=== PATIENT | female | born 1975 | race African-American/Black ===

== ENCOUNTER 2016-05-12 12:37 | Emergency (ER) | payer MEDICAID ==
[~2016-05-12] VITALS: Ht 170.2 cm; Wt 99.8 kg
[~2016-05-12 12:37] MED LIST: AMITRIPTYLINE25 MG ORAL; CYCLOBENZAPRINE10 MG ORAL; HYDROCODON-ACE1 EA15 ORAL; IBUPROFEN600 MG ORAL; IBUPROFEN800 M1 PO; NAPROSYN500 M1 ORAL; NKM; POLYTRIM OP SOL10 ML OPHTHALM; VIBRAMYCIN100 MG ORAL
[2016-05-12 12:55] VITALS: BP 98/66
--- NOTE | 2016-05-12 13:03 | Emergency Room Report ---
History of Present Illness General Chief Complaint: Female Urogenital Problems Source: Patient Present Illness HPI 40-year-old female presents emergency department complaining of dysuria and mild hematuria times one day. Patient denies nausea vomiting fevers chills abdominal pain or abdominal tenderness. Patient denies vaginal discharge or . Patient reports history of UTI in the past with similar symptoms. Patient denies CVA tenderness. Denies CP, Palpitations, LOC, AMS, dizziness, Changes in Vision, Sensation, paresthesias, or a sudden severe headache. Allergies: Coded Allergies: MORPHINE (Verified Allergy, Mild, 11/15/13) CONSTIPATION Patient History Past Medical History: see triage record Past Surgical History: none Pertinent Family History: none Last Menstrual Period: 2011 Now: No Immunizations: UTD Reviewed Nursing Documentation: PMH: Agreed, PSxH: Agreed Nursing Documentation-PMH Past Medical History: No History, Except For Hx Cardiac Problems: No - Sickle cell Review of Systems All Other Systems: negative except mentioned in HPI Physical Exam Vital Signs Date Time Temp Pulse Resp B/P Pulse Ox O2 Delivery O2 Flow Rate FiO2 05/12/16 12:46 98.1 78 16 98/66 98 Room Air Sp02 EP Interpretation: reviewed, normal General Appearance: no apparent distress, alert, GCS 15, non-toxic Head: normocephalic, atraumatic Eyes: bilateral eye PERRL, bilateral eye normal inspection ENT: hearing grossly normal, normal pharynx, no angioedema, normal voice Neck: full range of motion, supple/symm/no masses Respiratory: chest non-tender, lungs clear, normal breath sounds, speaking full sentences Cardiovascular #1: regular rate, rhythm, no edema Gastrointestinal: normal bowel sounds, non tender, soft, no guarding, no rebound Rectal: deferred Genitourinary: normal inspection, no CVA tenderness Musculoskeletal: back normal, gait/station normal, normal range of motion, non- tender Neurologic: alert, oriented x3, responsive, motor strength/tone normal, sensory intact, speech normal Psychiatric: judgement/insight normal, memory normal, mood/affect normal, no suicidal/homicidal ideation Reflexes: 4+ bicep (R), 4+ bicep (L), 4+ tricep (R), 4+ tricep (L), 4+ knee (R) , 4+ knee (L) Skin: normal color, no rash, warm/dry, well hydrated Lymphatic: no adenopathy Medical Decision Making PA Attestation Dr. Perea is my supervising Physician whom patient management has been discussed with. Diagnostic Impression: Primary Impression: UTI (urinary tract infection) Qualified Codes: N30.01 - Acute cystitis with hematuria Additional Impression: Dysuria ER Course Pt. presents to the ED c/o dysuria and mild hematuria x 1 Day, denies abdominal pain or tenderness. denies fevers. . Ddx considered but are not limited to UTi , Pyelo, STI, Stone, Cystitis Vital signs: are WNL, pt. is afebrile H&PE are most consistent with UTI ORDERS: - UA labs are attached : 30-40 WBC's , leukocyte esterase present and few bacteria, suspicious for UTI. ED INTERVENTIONS: -Pyridium PO . DISCHARGE: At this time pt. is stable for d/c to home. Will provide printed patient care instructions, and any necessary prescriptions. Care plan and follow up instructions have been discussed with the patient prior to discharge. Labs Test 05/12/16 12:50 Urine Color Pale yellow Urine Appearance Slightly cloudy Urine pH 6 (4.5-8.0) Urine Specific [place] 1.015 (1.005-1.035) Urine Protein 3+ (NEGATIVE) Urine Glucose (UA) Negative (NEGATIVE) Urine Ketones Negative (NEGATIVE) Urine Occult Blood 5+ (NEGATIVE) Urine Nitrite Negative (NEGATIVE) Urine Bilirubin Negative (NEGATIVE) Urine Urobilinogen Normal MG/DL (0.0-1.0) Urine Leukocyte Esterase 3+ (NEGATIVE) Urine RBC 10-15 /HPF (0 - 2) Urine WBC 30-40 /HPF (0 - 2) Urine Squamous Epithelial Cells Few /LPF (NONE/OCC) Urine Bacteria Few /HPF (NONE) Last Vital Signs Date Time Temp Pulse Resp B/P Pulse Ox O2 Delivery O2 Flow Rate FiO2 05/12/16 12:55 16 98/66 98 Room Air 05/12/16 12:46 98.1 78 Disposition: HOME, SELF-CARE Condition: Stable Scripts Phenazopyridine Hcl* (PYRIDIUM*) 200 Mg Tablet 200 MG ORAL THREE TIMES A DAY for 3 Days, #10 TAB 0 Refills Prov: Yareli Cullen P.Elzbieta 05/12/16 Nitrofurantoin Monohyd/M-Cryst* (MACROBID 100 MG*) 100 Mg Capsule 100 MG ORAL EVERY 12 HOURS for 5 Days, #10 CAP Prov: Yareli Cullen 05/12/16 Patient Instructions: Urinary Tract Infection Additional Instructions: Take medications as directed. Follow up with PCP in 3-5 days Return sooner to ED if new symptoms occur, or current symptoms become worse. Pyridium will cause your urine to change color (Red/[place]), this is a normal side effect of the medication. - Please note that this Emergency Department Report was dictated using [employer] video games technology software, occasionally this can lead to erroneous entry secondary to interpretation by the dictation equipment. Yareli Cullen May 12, 2016 13:03
[2016-05-12] MEDS ORDERED: Phenazopyridine 200mg tab ORAL ONE (13:15)
[2016-05-12 13:19] LABS: APPEARANCE,URINE SLIGHTLY CLOUDY; KETONES,URINE NEGATIVE (NEGATIVE); LEUKOCYTE ESTERASE ,URINE 3+ (NEGATIVE); NITRITE,URINE NEGATIVE (NEGATIVE); PH,URINE 6 (4.5-8.0); PROTEIN,URINE 3+ (NEGATIVE); UROBILINOGEN,URINE NORMAL MG/DL (0.0-1.0)
[2016-05-12 13:26] LABS: BACTERIA,URINE FEW /HPF; SQUAMOUS EPITHELIAL CELL,UR FEW /LPF (NONE/OCC); WBC,URINE 30-40 /HPF (0 - 2)
[2016-05-12] MEDS ORDERED: PHENAZOPYRIDIN200 MG ORAL (13:31)
[2016-05-12] MEDS ORDERED: NITROFURANTOIN100 M2 ORAL (13:31)
[2016-05-12 13:34] VITALS: BP 98/66
== END 2016-05-12 13:35 | disposition home or self-care (01) ==
LOC: EMR 13:30
DX: N30.01 Acute cystitis with hematuria (principal); R31.9 Hematuria, unspecified; Z88.6 Allergy status to analgesic agent; D57.1 Sickle-cell disease without crisis
CPT/HCPCS: 81003; 87086; 87181; 99284

== ENCOUNTER 2016-10-04 21:33 | Emergency (ER) | payer MEDICAID ==
[~2016-10-04] VITALS: Ht 170.2 cm; Wt 114.3 kg
[~2016-10-04 21:33] MED LIST changes: +NITROFURANTOIN100 M2 ORAL; +PHENAZOPYRIDIN200 MG ORAL
[2016-10-04 21:45] VITALS: BP 136/79
[2016-10-04] MEDS ORDERED: MEDROL4 M1 PO (23:06)
[2016-10-04] MEDS ORDERED: HYDROCODON-ACE1 EA15 ORAL (23:06)
[2016-10-04] MEDS ORDERED: IBUPROFEN600 MG ORAL (23:06)
--- NOTE | 2016-10-04 23:06 | Emergency Room Report ---
History of Present Illness General Chief Complaint: Lower Back Pain or Injury Source: Patient Present Illness [facility] This is a 41-year-old female with no significant past medical history. She presents with chief complaint of lower back pain. She fell about a month ago. Since then it has been hurting. Now pain going down her thigh area. No incontinence of bowel or urine. Pain is 9/10. Worse with walking. Worse with sitting. Better in certain position. No fever or chills. No in other complaint. Allergies: Coded Allergies: MORPHINE (Verified Allergy, Mild, 11/15/13) CONSTIPATION Patient History Past Medical History: see triage record, old chart reviewed Past Surgical History: other Pertinent Family History: none Social History: Denies: smoking Now: No Immunizations: other Reviewed Nursing Documentation: PMH: Agreed, PSxH: Agreed Nursing Documentation-PMH Past Medical History: No History, Except For Hx Cardiac Problems: No - Sickle cell Review of Systems Eye: Denies: blurred vision, eye pain ENT: Denies: ear pain, nose congestion, throat swelling Respiratory: Denies: cough, shortness of breath Cardiovascular: Denies: chest pain, palpitations Gastrointestinal: Denies: abdominal pain, diarrhea, nausea, vomiting Musculoskeletal: Reports: back pain, Denies: joint pain Skin: Denies: rash Neurological: Denies: headache, numbness Endocrine: Denies: increased thirst, increased urine Hematologic/Lymphatic: Denies: easy bruising All Other Systems: negative except mentioned in HPI Physical Exam Vital Signs Date Time Temp Pulse Resp B/P Pulse Ox O2 Delivery O2 Flow Rate FiO2 10/04/16 21:38 97.5 76 16 136/79 98 Room Air vitals normal Sp02 EP Interpretation: reviewed, normal General Appearance: well appearing, no apparent distress, alert, obese Head: normocephalic, atraumatic Eyes: bilateral eye EOMI, bilateral eye PERRL ENT: hearing grossly normal, normal pharynx Neck: full range of motion, supple, no meningismus Respiratory: chest non-tender, lungs clear, normal breath sounds Cardiovascular #1: regular rate, rhythm, no murmur Gastrointestinal: normal bowel sounds, non tender, no mass, no organomegaly, no bruit, non-distended Musculoskeletal: back normal, gait/station normal, normal range of motion Psychiatric: mood/affect normal Skin: warm/dry Medical Decision Making Diagnostic Impression: Primary Impression: Low back pain Qualified Codes: M54.42 - Lumbago with sciatica, left side Additional Impression: Foraminal stenosis of lumbar region ER Course Patient presents with lower back pain. She does have severe foraminal narrowing. No evidence of cauda equina syndrome, spinal after abscess or neoplastic process. We'll discharge home. CT/MRI/US Diagnostic Results CT/MRI/US Diagnostic Results : Imaging Test Ordered: CT lumbar spine Impression Read by radiologist. Severe left and moderate to severe right neural foraminal narrowing. Last Vital Signs Date Time Temp Pulse Resp B/P Pulse Ox O2 Delivery O2 Flow Rate FiO2 10/04/16 21:38 97.5 76 16 136/79 98 Room Air Status: improved Disposition: HOME, SELF-CARE Condition: Stable Scripts Methylprednisolone (MEDROL) 4 Mg Tab.ds.pk 4 MG PO DAILY, #1 PACK Prov: PORFIRIO PHIPPS M.D. 10/04/16 Ibuprofen* (MOTRIN*) 600 Mg Tablet 600 MG ORAL Q8H Y for For Pain, #30 TAB 0 Refills Prov: PORFIRIO PHIPPS M.D. 10/04/16 Hydrocodone/Acetaminophen 5-325* (HYDROCODONE/ACETAMINOPHEN 5-325*) 1 Each Tablet 1 TAB ORAL Q6H Y for For Pain, #30 TAB 0 Refills Prov: PORFIRIO PHIPPS M.D. 10/04/16 Patient Instructions: Back Pain, Adult Additional Instructions: Followup with your DrAbner in 7 days. Return if symptom worsen. PORFIRIO PHIPPS M.D. Oct 04, 2016 23:06
[2016-10-04 23:15] VITALS: BP 93/57
[2016-10-04 23:18] VITALS: BP 93/57
--- NOTE | 2016-10-05 10:13 | Diagnostic Imaging Report ---
Indications: Pain, trauma, left hip. Pain radiating to lower back Technique: Spiral acquisitions obtained through the lumbar spine. Multiplanar reconstructions were generated. No IV contrast utilized. Total dose length product 711 mGycm. CTDIvol(s) 24 mGy. Dose reduction achieved using automated exposure control Comparison: None Findings: Bony alignment is normal. Vertebral body heights are preserved. Disc spaces are preserved. There is transitional anatomy, with a transitional segment which will be referred to as S1 as there are 5 [id number] lumbar type vertebral bodies above it. 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 No acute fractures. No dislocations. No significant disc bulge or protrusion or spinal stenosis. At L5-S1, there is mild right, moderate to severe neural foraminal stenosis, due to facet degeneration. There is minimal bilateral neural foraminal at L4-5, due to facet degeneration Impression: No acute bony trauma Degenerative changes, as delineated on a level basis above The CT scanner at [facility] is accredited by the [employer] and the scans are performed using protocols designed to limit radiation exposure to as low as reasonably achievable to attain images of sufficient resolution adequate for diagnostic evaluation.
== END 2016-10-04 23:30 | disposition home or self-care (01) ==
LOC: EMR 23:27
DX: M54.42 Lumbago with sciatica, left side (principal); M48.06 Spinal stenosis, lumbar region; Z88.6 Allergy status to analgesic agent; E66.9 Obesity, unspecified
CPT/HCPCS: 72131; 99284

== ENCOUNTER 2016-10-09 23:42 | Emergency (ER) | payer MEDICAID ==
[~2016-10-09] VITALS: Ht 170.2 cm; Wt 113.4 kg
[~2016-10-09 23:42] MED LIST changes: +MEDROL4 M1 PO
[2016-10-10] MEDS ORDERED: NITROFURANTOIN100 M2 ORAL (00:15)
[2016-10-10] MEDS ORDERED: Norco 10mg/325mg tab ORAL ONE (00:15)
[2016-10-10 00:19] VITALS: BP 135/75
--- NOTE | 2016-10-10 00:27 | Emergency Room Report ---
History of Present Illness General Chief Complaint: Pain Source: Patient Present Illness HPI [id number] Walk-in with 2 weeks dysuria States "urine wasnt checked" on previous visit a couple days ago Also states Rx for [place] wasnt signed by Dr Amaya - was given repeat Rx signed by prior to my evaluation but patient still wanted to be seen by MD for dysuria Denies abd pain, nausea/vomiting, flank pain, fever/chills Denies chance of being Allergies: Coded Allergies: MORPHINE (Verified Allergy, Mild, 11/15/13) CONSTIPATION Patient History Past Medical History: none Past Surgical History: none Pertinent Family History: none Social History: Denies: alcohol use, drug use, smoking Last Menstrual Period: unk Now: No Immunizations: UTD Reviewed Nursing Documentation: PMH: Agreed, PSxH: Agreed Nursing Documentation-PMH Hx Cardiac Problems: No - Sickle cell Review of Systems All Other Systems: negative except mentioned in HPI Physical Exam Vital Signs Date Time Temp Pulse Resp B/P Pulse Ox O2 Delivery O2 Flow Rate FiO2 10/10/16 00:16 98.6 78 16 135/75 98 Room Air Sp02 EP Interpretation: reviewed, normal General Appearance: normal inspection, well appearing, no apparent distress, alert Head: atraumatic ENT: normal ENT inspection, hearing grossly normal, normal voice Neck: normal inspection, full range of motion, supple, no bony tend Respiratory: normal inspection, lungs clear, normal breath sounds, no respiratory distress, no retraction, no wheezing Cardiovascular #1: regular rate, rhythm, no edema Gastrointestinal: normal inspection, normal bowel sounds, non tender, soft, no guarding, no hernia Genitourinary: no CVA tenderness Musculoskeletal: normal inspection, back normal, normal range of motion, Cory' s Sign negative Neurologic: normal inspection, alert, oriented x3, responsive, 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, motor strength/tone normal, speech normal Psychiatric: normal inspection, judgement/insight normal, mood/affect normal Skin: normal inspection, normal color, no rash Medical Decision Making Diagnostic Impression: Primary Impression: Dysuria ER Course Empiric Abx for UTI based on April 2016 sensitivity Macrobid No systemic signs/symptoms of sepsis, pyelo DC home Last Vital Signs Date Time Temp Pulse Resp B/P Pulse Ox O2 Delivery O2 Flow Rate FiO2 10/10/16 00:19 98.6 78 16 135/75 98 Room Air Status: improved Disposition: HOME, SELF-CARE Condition: Improved Scripts Nitrofurantoin Monohyd/M-Cryst* (MACROBID 100 MG*) 100 Mg Capsule 100 MG ORAL EVERY 12 HOURS for 7 Days, #14 CAP Prov: RANDA BRITT M.D. 10/10/16 Patient Instructions: Dysuria RANDA BRITT M.D. Oct 10, 2016 00:27
[2016-10-10 00:35] VITALS: BP 135/75
[2016-10-10 01:10] LABS: APPEARANCE,URINE CLEAR; KETONES,URINE NEGATIVE (NEGATIVE); LEUKOCYTE ESTERASE ,URINE NEGATIVE (NEGATIVE); NITRITE,URINE NEGATIVE (NEGATIVE); PH,URINE 6 (4.5-8.0); PROTEIN,URINE NEGATIVE (NEGATIVE); UROBILINOGEN,URINE 1 MG/DL (0.0-1.0)
== END 2016-10-10 00:35 | disposition home or self-care (01) ==
LOC: EMR 23:59
DX: R30.0 Dysuria (principal); Z87.440 Personal history of urinary (tract) infections; Z88.6 Allergy status to analgesic agent
CPT/HCPCS: 81003; 81025; 99283

== ENCOUNTER 2017-01-04 22:15 | Emergency (ER) | payer MEDICAID ==
[~2017-01-04] VITALS: Ht 170.2 cm; Wt 117.0 kg
[2017-01-04] MEDS ORDERED: Ketorolac 60mg Inj IM ONE (22:45)
[2017-01-04] MEDS ORDERED: IBUPROFEN600 MG ORAL (23:05)
[2017-01-04] MEDS ORDERED: ROBAXIN-750750 MG PO (23:05)
[2017-01-04 23:17] VITALS: BP 126/72
[2017-01-04 23:18] VITALS: BP 128/70
--- NOTE | 2017-01-05 03:30 | Emergency Room Report ---
History of Present Illness General Chief Complaint: Multiple Trauma/Fall Source: Patient Present Illness HPI Patient 41-year-old female who presented after increased left-sided shoulder pain as well as left hip pain after a fall. Patient reports falling down some stairs. She reports having increased pain to the shoulder and hip. Patient had been ambulatory after the fall. She denies loss of consciousness. She reports having her left and and front of her. She denies vomiting or abdominal pain. Allergies: Coded Allergies: MORPHINE (Verified Allergy, Mild, 11/15/13) CONSTIPATION Patient History Past Medical History: see triage record Last Menstrual Period: mar 2011 Now: No : 4 Reviewed Nursing Documentation: PMH: Agreed, PSxH: Agreed Nursing Documentation-PMH Hx Cardiac Problems: No - Sickle cell Review of Systems All Other Systems: negative except mentioned in HPI Physical Exam Vital Signs Date Time Temp Pulse Resp B/P (MAP) Pulse Ox O2 Delivery O2 Flow Rate FiO2 01/04/17 22:17 97.2 66 18 123/73 98 Room Air General Appearance: well appearing, no apparent distress, alert, GCS 15, non- toxic, obese Head: normocephalic, atraumatic ENT: hearing grossly normal, normal voice Neck: full range of motion, supple Respiratory: no respiratory distress, speaking full sentences Cardiovascular #1: normal inspection, normal peripheral pulses, regular rate, rhythm Musculoskeletal: normal inspection, normal range of motion, no calf tenderness Neurologic: normal inspection, alert, oriented x3, responsive, 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 Differential diagnosis included was not limited to neck fracture, CVA, close head injury, syncopal episode, basilar ischemia. Patient's benign exam and does not appear to require any laboratory testing at this time. X-ray imaging of the left shoulder as well as the left hip were ordered. X-ray of the shoulder three-view interpreted by me showed a degenerative changes without fracture. X-ray of the left hip 2 views interpreted by me show bony alignment without fracture. The patient is advised to follow up with primary care doctor in 1-2 days. Patient is advised to return if any worsening condition or if any changes in status that are concerning. Last Vital Signs Date Time Temp Pulse Resp B/P (MAP) Pulse Ox O2 Delivery O2 Flow Rate FiO2 01/04/17 23:18 97.4 78 19 128/70 100 Room Air Status: improved Disposition: HOME, SELF-CARE Condition: Stable Scripts Ibuprofen* (MOTRIN*) 600 Mg Tablet 600 MG ORAL Q8H Y for For Pain, #30 TAB 0 Refills Prov: Shamar Thomas 01/04/17 Methocarbamol* (ROBAXIN-750*) 750 Mg Tablet 750 MG PO TID for For Pain, #21 TAB 0 Refills Prov: Shamar Thomas 01/04/17 [facility] (PCP[facility] Patient Instructions: Shoulder Pain, Hip Pain Shamar Thomas Jan 05, 2017 03:30
--- NOTE | 2017-01-05 11:15 | Diagnostic Imaging Report ---
Indication: PAIN Technique: 3 views of the left shoulder Comparison: None Findings: No acute fractures or dislocations. Joint spaces are preserved. Impression: Negative
--- NOTE | 2017-01-05 11:16 | Diagnostic Imaging Report ---
Indication: PAIN Technique: 2 views of the left hip Comparison: None Findings: There are mild degenerative changes of the sacroiliac joints and pubic symphysis. No acute fractures. No dislocations. Hip joint space is preserved Impression: No acute bony trauma
== END 2017-01-04 23:27 | disposition home or self-care (01) ==
LOC: EMR 22:32
DX: T14.8XXA Other injury of unspecified body region, initial encounter (principal); M25.552 Pain in left hip; M25.512 Pain in left shoulder; Z88.6 Allergy status to analgesic agent; M79.1 Myalgia; W10.9XXA Fall (on) (from) unspecified stairs and steps, initial encounter; Y92.9 Unspecified place or not applicable
CPT/HCPCS: 73502; 96372; 99284

== ENCOUNTER 2017-02-25 13:45 | Emergency (ER) | payer MEDICAID ==
[~2017-02-25] VITALS: Ht 170.2 cm; Wt 113.4 kg
[~2017-02-25 13:45] MED LIST changes: +ROBAXIN-750750 MG PO
[2017-02-25 14:50] VITALS: BP 108/75
[2017-02-25] MEDS ORDERED: Methocarbamol 750mg tab ORAL ONE (15:00)
[2017-02-25] MEDS ORDERED: Ketorolac 60mg Inj IM ONE (15:00)
[2017-02-25] MEDS ORDERED: IBUPROFEN600 MG ORAL (16:13)
[2017-02-25] MEDS ORDERED: ROBAXIN-750750 MG PO (16:13)
[2017-02-25 16:28] VITALS: BP 116/74
--- NOTE | 2017-02-25 17:02 | Diagnostic Imaging Report ---
Indication: Pain, status post fall Technique: 3 views of the left shoulder Comparison: none Findings: No acute fractures. No dislocations. Joint spaces are preserved Impression: Negative
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
== END 2017-02-25 16:40 | disposition home or self-care (01) ==
LOC: EMR 16:38
DX: S16.1XXA Strain of muscle, fascia and tendon at neck level, initial encounter (principal); S46.812A Strain of other muscles, fascia and tendons at shoulder and upper arm level, left arm, initial encounter; V43.52XA Car driver injured in collision with other type car in traffic accident, initial encounter; Y92.410 Unspecified street and highway as the place of occurrence of the external cause; Z88.6 Allergy status to analgesic agent
CPT/HCPCS: 96372; 99284

== ENCOUNTER 2017-05-21 20:54 | Emergency (ER) | payer MEDICAID ==
[~2017-05-21] VITALS: Ht 170.2 cm; Wt 108.0 kg
[2017-05-21 21:10] VITALS: BP 114/73
[2017-05-21] MEDS ORDERED: IBUPROFEN600 MG ORAL (21:24)
--- NOTE | 2017-05-21 21:24 | Emergency Room Report ---
History of Present Illness General Chief Complaint: Flu Like Symptoms Source: Patient Present Illness HPI Is a 41-year-old female with no past medical history. She presents with chief complaint of cough and congestion and body pain for last 2 days. Cough is nonproductive in nature. Nose is runny. Body pain is 7 out of 10. Subjective fever. Denies any other complaint. Allergies: Coded Allergies: MORPHINE (Verified Allergy, Mild, 11/15/13) CONSTIPATION Patient History Past Medical History: see triage record, old chart reviewed Past Surgical History: none Pertinent Family History: none Social History: Denies: smoking Last Menstrual Period: n/a Now: No - hysterectomy 2011 Immunizations: other Reviewed Nursing Documentation: PMH: Agreed; PSxH: Agreed Nursing Documentation-PMH Past Medical History: No History, Except For Review of Systems Eye: Denies: eye pain, blurred vision ENT: Reports: nose congestion, nasal discharge; Denies: ear pain, throat swelling Respiratory: Reports: cough; Denies: shortness of breath Cardiovascular: Denies: chest pain, palpitations Gastrointestinal: Denies: abdominal pain, diarrhea, nausea, vomiting Musculoskeletal: Denies: back pain, joint pain Skin: Denies: rash Neurological: Denies: headache, numbness Endocrine: Denies: increased thirst, increased urine Hematologic/Lymphatic: Denies: easy bruising All Other Systems: negative except mentioned in HPI Physical Exam Vital Signs Date Time Temp Pulse Resp B/P (MAP) Pulse Ox O2 Delivery O2 Flow Rate FiO2 05/21/17 20:58 98.7 87 16 114/73 95 Room Air 98.8 vitals normal Sp02 EP Interpretation: reviewed, normal General Appearance: well appearing, no apparent distress, alert Head: normocephalic, atraumatic Eyes: bilateral eye PERRL, bilateral eye EOMI ENT: hearing grossly normal, normal pharynx Neck: full range of motion, supple, no meningismus Respiratory: chest non-tender, lungs clear, normal breath sounds Cardiovascular #1: regular rate, rhythm, no murmur Gastrointestinal: normal bowel sounds, non tender, no mass, no organomegaly, no bruit, non-distended Musculoskeletal: back normal, gait/station normal, normal range of motion Psychiatric: mood/affect normal Skin: warm/dry Medical Decision Making Diagnostic Impression: Primary Impression: Upper respiratory infection Qualified Codes: J06.9 - Acute upper respiratory infection, unspecified ER Course Patient with a viral upper respiratory or infection. No evidence of sepsis, pneumonia, meningitis or other serious bacterial infection. We'll discharge home. Last Vital Signs Date Time Temp Pulse Resp B/P (MAP) Pulse Ox O2 Delivery O2 Flow Rate FiO2 05/21/17 21:10 87 16 Room Air 05/21/17 21:10 98.8 114/73 95 98.8 Status: unchanged Disposition: HOME, SELF-CARE Condition: Stable Scripts Ibuprofen* (MOTRIN*) 600 Mg Tablet 600 MG ORAL THREE TIMES A DAY, #30 TAB 0 Refills Prov: PORFIRIO PHIPPS M.D. 05/21/17 Additional Instructions: Follow-up with your Dr. in 7 days. Return if worse. PORFIRIO PHIPPS M.D. May 21, 2017 21:24
[2017-05-21 21:33] VITALS: BP 114/70
== END 2017-05-21 21:33 | disposition home or self-care (01) ==
LOC: EMR 21:19
DX: J06.9 Acute upper respiratory infection, unspecified (principal); Z88.5 Allergy status to narcotic agent
CPT/HCPCS: 99283

== ENCOUNTER 2017-05-24 00:01 | Emergency (ER) | payer MEDICAID ==
[~2017-05-24] VITALS: Ht 170.2 cm; Wt 112.9 kg
[2017-05-24 00:20] VITALS: BP 128/75
--- NOTE | 2017-05-24 00:31 | Emergency Room Report ---
History of Present Illness General Chief Complaint: Fever Source: Patient Present Illness HPI This a 41-year-old female who said that she has sickle cell disease. She presents with chief complaint of fever and body pain. Onset today. Also with cough which is nonproductive in nature. Has nausea and vomiting and generalized malaise. Took aspirin prior to arrival. Denies any other complaint. Pain is 10 out of 10. Allergies: Coded Allergies: MORPHINE (Verified Allergy, Mild, 11/15/13) CONSTIPATION Patient History Past Medical History: see triage record, old chart reviewed Past Surgical History: other Pertinent Family History: none Social History: Denies: smoking Last Menstrual Period: 2011 Now: No Immunizations: other Reviewed Nursing Documentation: PMH: Agreed; PSxH: Agreed Review of Systems Constitutional: Reports: chills, sweats, fever, malaise Eye: Denies: eye pain, blurred vision ENT: Denies: ear pain, nose congestion, throat swelling Respiratory: Reports: cough Cardiovascular: Denies: chest pain, palpitations Gastrointestinal: Reports: nausea, vomiting Musculoskeletal: Reports: back pain, joint pain Skin: Denies: rash Neurological: Denies: headache, numbness Endocrine: Denies: increased thirst, increased urine Hematologic/Lymphatic: Denies: easy bruising All Other Systems: negative except mentioned in HPI Physical Exam Vital Signs Date Time Temp Pulse Resp B/P (MAP) Pulse Ox O2 Delivery O2 Flow Rate FiO2 05/24/17 00:07 99.8 93 18 103/61 95 Room Air 99.9 vitals with low-grade fever Sp02 EP Interpretation: reviewed, normal General Appearance: well appearing, no apparent distress, alert Head: normocephalic, atraumatic Eyes: bilateral eye PERRL, bilateral eye EOMI ENT: hearing grossly normal, normal pharynx Neck: full range of motion, supple, no meningismus Respiratory: chest non-tender, lungs clear, normal breath sounds Cardiovascular #1: regular rate, rhythm, no murmur Gastrointestinal: normal bowel sounds, non tender, no mass, no organomegaly, no bruit, non-distended Musculoskeletal: back normal, gait/station normal, normal range of motion Psychiatric: mood/affect normal Skin: warm/dry Medical Decision Making Diagnostic Impression: Primary Impression: UTI (urinary tract infection) Qualified Codes: N30.00 - Acute cystitis without hematuria Additional Impression: Influenza-like illness ER Course Patient with a flulike illness and may have UTI. Even though influenza swab was negative, we'll go ahead and treat because of her sickle cell disease. I question were not this is a trait since her hemoglobin is 14. No evidence of sepsis, pneumonia, ACS to name a few. We'll discharge home. Lab Results Impression labs unremarkable Rhythm Strip Diag. Results EP Interpretation: yes Rate: 63 Rhythm: NSR, no PVC's, no ectopy Chest X-Ray Diagnostic Results Chest X-Ray Diagnostic Results : Chest X-Ray Ordered: Yes # of Views/Limited/Complete: 1 View Indication: Shortness of Breath EP Interpretation: Yes Interpretation: no consolidation, no effusion, no pneumothorax, no acute cardiopulmonary disease Impression: No acute disease Electronically Signed by: Jericho Amaya MD Last Vital Signs Date Time Temp Pulse Resp B/P (MAP) Pulse Ox O2 Delivery O2 Flow Rate FiO2 05/24/17 00:07 99.8 93 18 103/61 95 Room Air 99.9 Status: improved Disposition: HOME, SELF-CARE Condition: Stable Scripts Cephalexin* (KEFLEX*) 500 Mg Capsule 500 MG ORAL TID, #21 CAP 0 Refills Prov: JERICHO AMAYA M.D. 05/24/17 Hydrocodone/Acetaminophen 5-325* (HYDROCODONE/ACETAMINOPHEN 5-325*) 1 Each Tablet 1 TAB ORAL Q6H PRN for For Pain, #15 TAB 0 Refills Prov: JERICHO AMAYA M.D. 05/24/17 Oseltamivir Phosphate (Tamiflu) 75 Mg Capsule 75 MG ORAL TWICE A DAY, #10 CAP Prov: JERICHO AMAYA M.D. 05/24/17 Ibuprofen* (MOTRIN*) 600 Mg Tablet 600 MG ORAL THREE TIMES A DAY, #30 TAB 0 Refills Prov: JERICHO AMAYA M.D. 05/24/17 Additional Instructions: Follow-up with your DrAbner in 2-3 days. Return if symptom worsen. JERICHO AMAYA M.D. May 24, 2017 00:31
[2017-05-24] MEDS ORDERED: HYDROmorphone 1mg/ml Carpuject IVP ONE (00:45)
[2017-05-24] MEDS ORDERED: Acetaminophen 500mg (ES) tab ORAL ONE (00:45)
[2017-05-24 01:06] LABS: APPEARANCE,URINE CLEAR; BILIRUBIN, URINE NEGATIVE (NEGATIVE); GLUCOSE, URINE (UA) NEGATIVE (NEGATIVE); KETONES,URINE NEGATIVE (NEGATIVE); LEUKOCYTE ESTERASE ,URINE 1+ (NEGATIVE); NITRITE,URINE NEGATIVE (NEGATIVE); PH,URINE 6 (4.5-8.0); PROTEIN,URINE 1+ (NEGATIVE); UROBILINOGEN,URINE NORMAL MG/DL (0.0-1.0)
[2017-05-24 01:07] LABS: BASOPHILS % (AUTO) 2.5 % (0.0-2.0); EOSINOPHILS % (AUTO) 5.5 % (0.0-3.0); HEMATOCRIT 41.2 % (37.0-47.0); HEMOGLOBIN 14.3 G/DL (12.0-16.0); LYMPHOCYTES % (AUTO) 29.1 % (20.0-45.0); MEAN CORPUSCULAR VOLUME 81 FL (80-99); MONOCYTES % (AUTO) 15.9 % (1.0-10.0); NEUTROPHILS % (AUTO) 47.1 % (45.0-75.0); PLATELET COUNT 213 K/UL (150-450); RED CELL DISTRIBUTION WIDTH 13.2 % (11.6-14.8); WHITE BLOOD COUNT 5.7 K/UL (4.8-10.8)
[2017-05-24 01:07] LABS: COLOR,URINE YELLOW
[2017-05-24] MEDS ORDERED: cefTRIAXone 1 GM in NS 55 ML IVPB ONE (01:30)
[2017-05-24 01:43] LABS: ALANINE AMINOTRANSFERASE 22 U/L (12-78); ALBUMIN 3.3 G/DL (3.4-5.0); ALBUMIN/GLOBULIN RATIO 0.8 (1.0-2.7); ALKALINE PHOSPHATASE 72 U/L (46-116); ASPARTATE AMINO TRANSFERASE 21 U/L (15-37); BILIRUBIN,TOTAL 0.5 MG/DL (0.2-1.0); BLOOD UREA NITROGEN 9 mg/dL (7-18); CALCIUM 8.9 MG/DL (8.5-10.1); CARBON DIOXIDE 27 MMOL/L (21-32); CKMB 0.5 NG/ML (0.0-3.6); CREATINE KINASE 189 U/L (26-308)
[2017-05-24 01:55] VITALS: BP 117/73
[2017-05-24] MEDS ORDERED: IBUPROFEN600 MG ORAL (01:59)
[2017-05-24] MEDS ORDERED: TAMIFLU75 MG ORAL (01:59)
[2017-05-24] MEDS ORDERED: HYDROCODON-ACE1 EA15 ORAL (01:59)
[2017-05-24] MEDS ORDERED: KEFLEX500 MG ORAL (02:00)
[2017-05-24 02:19] VITALS: BP 117/73
[2017-05-24 06:50] LABS: CHLORIDE 104 MMOL/L (98-107); POTASSIUM 4.2 MMOL/L (3.5-5.1); SODIUM 139 MMOL/L (136-145)
[2017-05-24 06:51] LABS: ANION GAP 8 mmol/L (5-15)
--- NOTE | 2017-05-24 14:32 | Diagnostic Imaging Report ---
Indication: Cough and congestion Technique: One view of the chest Comparison: None Findings: There is atelectasis at the right lung base. The remainder the lungs and pleural spaces are clear. The heart size is normal. Impression: Minimal right basilar atelectasis. No acute process otherwise
== END 2017-05-24 02:10 | disposition home or self-care (01) ==
LOC: EMR 01:06
DX: N39.0 Urinary tract infection, site not specified (principal); J11.1 Influenza due to unidentified influenza virus with other respiratory manifestations; Z88.5 Allergy status to narcotic agent
CPT/HCPCS: 36415; 71045; 80053; 81003; 82550; 82553; 83605; 84484; 85025; 86710; 87040; 87086; 96361; 96374; 96375; 99284; J0696; J1170; J2405

== ENCOUNTER 2017-05-29 20:23 | Emergency (ER) | payer MEDICAID ==
[~2017-05-29] VITALS: Ht 170.2 cm; Wt 113.4 kg
[~2017-05-29 20:23] MED LIST changes: +KEFLEX500 MG ORAL; +TAMIFLU75 MG ORAL
[2017-05-29 20:48] VITALS: BP 106/67
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
[2017-05-29] MEDS ORDERED: IBUPROFEN600 MG ORAL (21:25)
[2017-05-29] MEDS ORDERED: ROBAXIN-750750 MG PO (21:25)
[2017-05-29 21:47] VITALS: BP 106/67
--- NOTE | 2017-05-30 11:40 | Diagnostic Imaging Report ---
Indication: Chest pain Comparison: May 24, 2017 A single view chest radiograph was obtained. Findings: Cardiomediastinal appearance is within normal limits for age. Pulmonary vascularity is appropriate. The diaphragmatic contour is smooth and costophrenic angles are sharp. No pleural effusions are identified. The bones are unremarkable. Impression: No acute findings
== END 2017-05-29 21:47 | disposition home or self-care (01) ==
LOC: EMR 21:09
DX: M25.512 Pain in left shoulder (principal); M25.511 Pain in right shoulder; Z88.5 Allergy status to narcotic agent
CPT/HCPCS: 71045; 99284

== ENCOUNTER 2017-11-09 01:39 | Emergency (ER) | payer MEDICAID ==
[~2017-11-09] VITALS: Ht 170.2 cm; Wt 108.9 kg
[2017-11-09] MEDS ORDERED: NKM (01:58)
[2017-11-09 02:00] VITALS: BP 102/69
[2017-11-09] MEDS ORDERED: IBUPROFEN600 MG ORAL (02:11)
[2017-11-09] MEDS ORDERED: ROBAXIN-750750 MG PO (02:11)
[2017-11-09] MEDS ORDERED: LIDODERM700 M1 TOPIC (02:11)
[2017-11-09] MEDS ORDERED: Methocarbamol 750mg tab ORAL ONE (02:15)
[2017-11-09 02:35] VITALS: BP 105/67
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
== END 2017-11-09 02:35 | disposition home or self-care (01) ==
LOC: EMR 02:00
DX: M54.2 Cervicalgia (principal); M54.9 Dorsalgia, unspecified; M25.511 Pain in right shoulder; V43.52XA Car driver injured in collision with other type car in traffic accident, initial encounter; Y92.410 Unspecified street and highway as the place of occurrence of the external cause
CPT/HCPCS: 99283

== ENCOUNTER 2017-12-26 16:32 | Emergency (ER) | payer MEDICAID ==
[~2017-12-26] VITALS: Ht 162.6 cm; Wt 108.4 kg
[~2017-12-26 16:32] MED LIST changes: +LIDODERM700 M1 TOPIC
[2017-12-26 16:48] VITALS: BP 104/69
--- NOTE | 2017-12-26 17:20 | Emergency Room Report ---
History of Present Illness General Chief Complaint: Eye Problems Source: Patient Present Illness HPI 42-year-old female with no significant past medical history here complaining of right eye pain 2 days. She denies trauma, fall, or foreign body in the eye. Chief denies chemical exposure. Complains of yellow discharge from the right eye, swelling and pain over the right nasal septum and both upper and lower right eyelids, photophobia, and pain radiating 5 out of 10 intermittent radiation. Denies headache, vision changes, ear pain, no other respiratory system symptoms. Has not applied any eyedrops. Denies pruritus denies chest pain, sob, palpation, and all other associated symptoms Allergies: Coded Allergies: MORPHINE (Verified Allergy, Mild, 11/15/13) CONSTIPATION Patient History Past Medical History: see triage record Past Surgical History: none Now: No Immunizations: UTD Reviewed Nursing Documentation: PMH: Agreed; PSxH: Agreed Nursing Documentation-PMH Past Medical History: No History, Except For Review of Systems All Other Systems: negative except mentioned in HPI Physical Exam Vital Signs Date Time Temp Pulse Resp B/P (MAP) Pulse Ox O2 Delivery O2 Flow Rate FiO2 12/26/17 16:38 98.1 85 17 104/69 98 Room Air Sp02 EP Interpretation: reviewed, normal General Appearance: normal inspection, well appearing, no apparent distress, alert, GCS 15 Head: normocephalic, atraumatic Eyes: right eye PERRL, right eye lid inflammation, right eye photophobia, right eye other - pterygium right eye ENT: normal pharynx, no angioedema, uvula midline, other - tenderness over right nasal septum and right orbital Neck: normal inspection, full range of motion, supple Respiratory: normal inspection, chest non-tender, lungs clear, no rhonchi, no wheezing Cardiovascular #1: normal inspection, regular rate, rhythm, no murmur Gastrointestinal: normal inspection, soft Rectal: deferred Genitourinary: deferred Musculoskeletal: normal inspection Neurologic: normal inspection, alert, oriented x3 Psychiatric: normal inspection, judgement/insight normal, memory normal Skin: normal inspection, normal color, no rash, warm/dry Lymphatic: normal inspection, no adenopathy Medical Decision Making PA Attestation all diagnoses and treatment plans were reviewed and discussed with my supervising physician Diagnostic Impression: Primary Impression: Dacrocystitis Additional Impression: Pterygium ER Course 42-year-old female with no significant past medical history here complaining of right eye pain 2 days. She denies trauma, fall, or foreign body in the eye. Chief denies chemical exposure. Complains of yellow discharge from the right eye, swelling and pain over the right nasal septum and both upper and lower right eyelids, photophobia, and pain radiating 5 out of 10 intermittent radiation. Denies headache, vision changes, ear pain, no other respiratory system symptoms. Has not applied any eyedrops. Denies pruritus denies chest pain, sob, palpation, and all other associated symptoms Ddx considered but are not limited to dacrocystitis, pterygium, conjunctivitis, chalazion Vital signs: are WNL, pt. is afebrile H&PE are most consistent with dacrocystitis, pterygium ORDERS: bactrim ds, ofloxacin drop ED INTERVENTIONS: None required at this time. DISCHARGE: At this time pt. is stable for d/c to home. Will provide printed patient care instructions, and any necessary prescriptions. Care plan and follow up instructions have been discussed with the patient prior to discharge. Follow-up with psychosocial rehabilitation counselor as soon as possible, steve Nixon. Bothersome, oral antibiotics are needed as a infection spreading, avoid contaminating the eye avoid cross contamination and hydrogen advice Last Vital Signs Date Time Temp Pulse Resp B/P (MAP) Pulse Ox O2 Delivery O2 Flow Rate FiO2 12/26/17 16:48 98.1 17 104/69 98 Room Air 12/26/17 16:38 85 Disposition: HOME, SELF-CARE Condition: Stable Scripts Ofloxacin (Ofloxacin) 5 Ml Drops 2 DROP OP BID for 7 Days, #10 ML Prov: Frederic Shore 12/26/17 Trimethoprim/Sulfamethoxazole 160/800* (BACTRIM DS TABLET*) 1 Each Tablet 1 TAB ORAL BID for 7 Days, #14 TAB Prov: Frederic Shore 12/26/17 Patient Instructions: Bacterial Conjunctivitis, [id number] Frederic Shore Dec 26, 2017 17:20
[2017-12-26] MEDS ORDERED: BACTRIM DS TAB1 EAC1 ORAL (17:33)
[2017-12-26] MEDS ORDERED: OFLOXACIN10 ML OP (17:33)
[2017-12-26 18:18] VITALS: BP 115/80
== END 2017-12-26 18:18 | disposition home or self-care (01) ==
LOC: EMR 17:26
DX: H04.301 Unspecified dacryocystitis of right lacrimal passage (principal); H11.001 Unspecified pterygium of right eye; H57.11 Ocular pain, right eye; Z88.5 Allergy status to narcotic agent
CPT/HCPCS: 99283

== ENCOUNTER 2018-02-26 22:18 | Emergency (ER) | payer MEDICAID ==
[~2018-02-26] VITALS: Ht 170.2 cm; Wt 112.9 kg
[~2018-02-26 22:18] MED LIST changes: +BACTRIM DS TAB1 EAC1 ORAL; +OFLOXACIN10 ML OP
[2018-02-26 22:37] VITALS: BP 109/76
--- NOTE | 2018-02-26 22:38 | NUR ---
ER Nurse Note: Pt came from home c/o right big toe pain 10/ that started today afternoon. Pt stated her old toe nail feel off, got an acrylic nail (unk time); and ripped off the nail. Pt stated toe is swollen, pain, discolored. Pt able to move toes; cap refill less than 3 secs. Pt a&ox4, VSS. ERMD at bedside; will continue to montior.
[2018-02-26] MEDS ORDERED: Lidocaine 1% Plain 30 ml INJ ONE (23:00)
--- NOTE | 2018-02-26 23:31 | Emergency Room Report ---
History of Present Illness General Chief Complaint: Pain Source: Patient Present Illness HPI Patient presents emergency department today complaining of right great toe pain. Patient has a history of abnormal nail growth in that right great toe. Patient had an acrylic nail applied. Since then patient has had significant amount of pain especially over last couple days in this area. Patient states that her toe feel swollen she feels intense pressure and is requesting removal of the acrylic nail. No other injuries were noted. Symptoms noted to be moderate to severe.No other modifying factors. No other associated signs and symptoms. No other complaints were noted. Allergies: Coded Allergies: MORPHINE (Verified Allergy, Mild, 11/15/13) CONSTIPATION Patient History Past Medical History: none Past Surgical History: none Pertinent Family History: none Social History: Denies: smoking, alcohol use, drug use Last Menstrual Period: Mar 2011 Now: No Reviewed Nursing Documentation: PMH: Agreed; PSxH: Agreed Review of Systems All Other Systems: negative except mentioned in HPI Physical Exam Vital Signs Date Time Temp Pulse Resp B/P (MAP) Pulse Ox O2 Delivery O2 Flow Rate FiO2 02/26/18 22:27 98.6 71 18 109/76 95 Room Air Sp02 EP Interpretation: reviewed, normal General Appearance: normal inspection, well appearing, no apparent distress, alert Head: atraumatic Eyes: bilateral eye normal inspection ENT: normal ENT inspection, hearing grossly normal, normal voice Neck: normal inspection, supple, no bony tend Respiratory: no respiratory distress, no retraction Cardiovascular #1: no edema Musculoskeletal: normal range of motion, tender - right great toe Neurologic: normal inspection, alert, responsive, speech normal Psychiatric: normal inspection, judgement/insight normal, mood/affect normal Skin: normal inspection, normal color, no rash Procedures Additional Procedure Procedure Narrative Digital block: 1% lidocaine was injected into patient's right great toe in a sterile manner. Digital block was performed. There was adequate algesia. A total of 5 mL of lidocaine was used. There is no complications associated with the procedure. Patient told procedure without difficulty. Nail removal: Acrylic nail on patient's right great toe was removed using tweezers. They were carefully removed without complication. Patient tolerated the procedure without difficulty. There was no evidence of any bleeding or competitions after procedure. Medical Decision Making Diagnostic Impression: Primary Impression: toenail removal ER Course Patient presents emergency department today complaining of right toe pain and acrylic nail removal. Differential considerations include paronychia , ingrown toenail, infection just to name a few. Given patient's presentation I felt that patient's nail require removal. Digital block was performed nail was removed patient felt better. There is complications associated with procedure. Advised to follow with primary care physician or return to emergency room for any worsening symptoms and as needed. Last Vital Signs Date Time Temp Pulse Resp B/P (MAP) Pulse Ox O2 Delivery O2 Flow Rate FiO2 02/26/18 22:37 98.6 71 18 109/76 95 Room Air Status: improved Disposition: HOME, SELF-CARE Condition: Stable Patient Instructions: Nail Bed Injury, [id number] Leandro Arreola MD Feb 26, 2018 23:31
--- NOTE | 2018-02-26 23:39 | NUR ---
ER Nurse Note: Patient seen, treated, medically cleared for discharged from medical care. Discharge instructions and prescriptions given with repeat verbalization from pt. Instructed pt to follow up with primary care physican within one week. Pt awake, alert and oriented x4. All medical devices such as ID band were removed. Patient ambulated out with all personal belongings with steady gait.
[2018-02-26 23:41] VITALS: BP 112/74
== END 2018-02-26 23:42 | disposition home or self-care (01) ==
LOC: EMR 22:55
DX: M25.571 Pain in right ankle and joints of right foot (principal); Z88.6 Allergy status to analgesic agent
CPT/HCPCS: 99283; J2001

== ENCOUNTER 2018-06-28 12:56 | Emergency (ER) | payer SELFPAY ==
[~2018-06-28] VITALS: Ht 170.2 cm; Wt 116.1 kg
[2018-06-28 13:32] VITALS: BP 96/69
--- NOTE | 2018-06-28 13:34 | NUR ---
ED Nurse Note: Patient walked in to ER c/o LB pain 12/01. pt aao x4 and ambulatory. pt denied injury or trauma. skin clean and intact. calm and cooperative.
[2018-06-28] MEDS ORDERED: Ketorolac 30mg Inj IM ONE (13:45)
--- NOTE | 2018-06-28 14:16 | Emergency Room Report ---
History of Present Illness General Chief Complaint: Back Pain-No Injury Source: Patient Present Illness HPI 43-year-old female presents to the emergency department complaining of 10 out of 10 in severity pain to the left side of her back times one week. Patient reports her symptoms have not been improving despite taking some Motrin at home. Patient denies appreciable trauma or fall she states that she has had muscle strains in her back in the past. Patient reports urinary frequency denies hematuria, dysuria o urgency. Patient denies abdominal pain or tenderness. She denies nausea or vomiting. Patient denies . Denies midline spinous pain she states on occasion she has had some sharp shooting pain down the left leg with certain movements. Patient states she is having a hard time finding a position of comfort. Allergies: Coded Allergies: MORPHINE (Verified Allergy, Mild, 11/15/13) CONSTIPATION Patient History Past Medical History: see triage record Past Surgical History: none Pertinent Family History: none Now: No Reviewed Nursing Documentation: PMH: Agreed; PSxH: Agreed Nursing Documentation-PMH Past Medical History: No History, Except For Review of Systems All Other Systems: negative except mentioned in HPI Physical Exam Vital Signs Date Time Temp Pulse Resp B/P (MAP) Pulse Ox O2 Delivery O2 Flow Rate FiO2 06/28/18 13:01 98.8 82 21 94 Room Air 06/28/18 13:32 96/69 Sp02 EP Interpretation: reviewed, normal General Appearance: no apparent distress, alert, GCS 15, non-toxic Head: normocephalic, atraumatic Eyes: bilateral eye normal inspection, bilateral eye PERRL ENT: hearing grossly normal, normal voice Neck: full range of motion Respiratory: chest non-tender, lungs clear, normal breath sounds, speaking full sentences Cardiovascular #1: regular rate, rhythm Gastrointestinal: non tender, soft Genitourinary: normal inspection, no CVA tenderness Musculoskeletal: back normal, gait/station normal, normal range of motion, tender - TTP to the left lumbar paraspinal musculature, no midline spinous process tenderness or deformities, no step-offs. Neurologic: alert, oriented x3, responsive, motor strength/tone normal, sensory intact, speech normal, grossly normal Psychiatric: judgement/insight normal Skin: normal color, no rash, warm/dry, well hydrated Lymphatic: no adenopathy Medical Decision Making PA Attestation Dr. Hanna is my supervising Physician whom patient management has been discussed with. Diagnostic Impression: Primary Impression: Back pain Qualified Codes: M54.42 - Lumbago with sciatica, left side Additional Impression: Muscle strain ER Course 43-year-old female presents to the emergency department complaining of 10 out of 10 in severity pain to the left side of her back times one week. Patient reports her symptoms have not been improving despite taking some Motrin at home. Patient denies appreciable trauma or fall she states that she has had muscle strains in her back in the past. Patient reports urinary frequency denies hematuria, dysuria o urgency. Patient denies abdominal pain or tenderness. She denies nausea or vomiting. Patient denies . Denies midline spinous pain she states on occasion she has had some sharp shooting pain down the left leg with certain movements. Patient states she is having a hard time finding a position of comfort. Ddx considered but are not limited to Fracture, dislocation, contusion, Sprain/ Strain/Spasm, herniated disk, degenerative changes, epidural abscess, or neoplastic mets. Vital signs: are WNL, pt. is afebrile H&PE are most consistent with musculoskeletal injury. - no saddle anesthesia, or neurological deficits, no urinary retention or incontinence. ORDERS: - UA:unremarkable ED INTERVENTIONS: - Toradol IM -Soma PO - Lidoderm TP DISCHARGE: At this time pt. is stable for d/c to home. Will provide printed patient care instructions, and any necessary prescriptions. Care plan and follow up instructions have been discussed with the patient prior to discharge. Labs Test 06/28/18 14:00 Urine Color Pale yellow Urine Appearance Clear Urine pH 6.5 (4.5-8.0) Urine Specific [place] 1.015 (1.005-1.035) Urine Protein Negative (NEGATIVE) Urine Glucose (UA) Negative (NEGATIVE) Urine Ketones Negative (NEGATIVE) Urine Blood 1+ (NEGATIVE) Urine Nitrite Negative (NEGATIVE) Urine Bilirubin Negative (NEGATIVE) Urine Urobilinogen Normal MG/DL (0.0-1.0) Urine Leukocyte Esterase 1+ (NEGATIVE) Last Vital Signs Date Time Temp Pulse Resp B/P (MAP) Pulse Ox O2 Delivery O2 Flow Rate FiO2 06/28/18 13:32 98.8 72 21 96/69 94 Room Air Status: improved Disposition: HOME, SELF-CARE Condition: Stable Scripts Naproxen* (NAPROXEN*) 500 Mg Tablet 500 MG ORAL TWICE A WEEK for 7 Days, #14 TAB 0 Refills Prov: Yareli Cullen 06/28/18 Tizanidine Hcl* (ZANAFLEX*) 4 Mg Tablet 4 MG ORAL THREE TIMES A DAY for 7 Days, #21 TAB 0 Refills Prov: Yareli Cullen 06/28/18 Referrals: NON PHYSICIAN (PCP) Patient Instructions: Back Pain, Adult Additional Instructions: Take medications as directed. Follow up with a Primary Care Provider in 3-5 days, even if your symptoms have resolved. --Please review list of primary care clinics, if you do not already have a primary care provider Return sooner to ED if new symptoms occur, or current symptoms become worse. Do not drink alcohol, drive, or operate heavy machinery while taking Robaxin ( Muscle Relaxers) as this may cause drowsiness. - Please note that this Emergency Department Report was dictated using [employer] ict technology software, occasionally this can lead to erroneous entry secondary to interpretation by the dictation equipment. Yareli Cullen June 28, 2018 14:16
[2018-06-28 14:25] LABS: APPEARANCE,URINE CLEAR; BILIRUBIN, URINE NEGATIVE (NEGATIVE); COLOR,URINE PALE YELLOW; GLUCOSE, URINE (UA) NEGATIVE (NEGATIVE); KETONES,URINE NEGATIVE (NEGATIVE); LEUKOCYTE ESTERASE ,URINE 1+ (NEGATIVE); NITRITE,URINE NEGATIVE (NEGATIVE); PH,URINE 6.5 (4.5-8.0); PROTEIN,URINE NEGATIVE (NEGATIVE); UROBILINOGEN,URINE NORMAL MG/DL (0.0-1.0)
[2018-06-28] MEDS ORDERED: NAPROXEN500 M2 ORAL (14:46)
[2018-06-28] MEDS ORDERED: TIZANIDINE HCL4 MG ORAL (14:46)
[2018-06-28 15:24] VITALS: BP 102/70
--- NOTE | 2018-06-28 15:25 | NUR ---
ER DISCHARGE NOTE: Patient is cleared to be discharged per ERPA, pt is aox4, on room air, with stable vital signs. pt was given dc and prescription instructions, pt was able to verbalize understanding, pt id band removed. pt is able to ambulate with steady gait. pt took all belongings.
== END 2018-06-28 15:26 | disposition home or self-care (01) ==
LOC: EMR 13:15
DX: M54.42 Lumbago with sciatica, left side (principal); T14.8XXA Other injury of unspecified body region, initial encounter; X58.XXXA Exposure to other specified factors, initial encounter; Y92.9 Unspecified place or not applicable; Z88.6 Allergy status to analgesic agent
CPT/HCPCS: 81001; 81003; 96372; 99283; J1885

== ENCOUNTER → 2019-05-02 | Emergency (ER) | payer MEDICAID ==
[~2019-05-02] VITALS: Ht 170.2 cm; Wt 116.6 kg
[~2019-05-02] MED LIST changes: +IBU800 MG PO; +NAPROXEN500 M2 ORAL; +TIZANIDINE HCL4 MG ORAL
[2019-05-02 12:10] VITALS: BP 107/59
--- NOTE | 2019-05-02 12:10 | NUR ---
ED Nurse Note: Pt ambulated to ed c/o left breast pain x 2-3 weeks. pt states she feels lump. Pt's VSS, on RA, NAD.
[2019-05-02 12:46] VITALS: BP 107/59
--- NOTE | 2019-05-02 12:46 | NUR ---
AMA: SEE AMA FORM.
--- NOTE | 2019-05-02 15:07 | Emergency Room Report ---
History of Present Illness General Chief Complaint: General Complaint Source: Patient Present Illness HPI This patient left prior to evaluation by medical provider. Allergies: Coded Allergies: MORPHINE (Verified Allergy, Mild, 11/15/13) CONSTIPATION Patient History Last Menstrual Period: 03/2013 Nursing Documentation-[facility] Past Medical History: No Stated History Physical Exam Vital Signs Date Time Temp Pulse Resp B/P (MAP) Pulse Ox O2 Delivery O2 Flow Rate FiO2 05/02/19 12:01 97.9 69 19 107/59 (75) 95 Room Air Medical Decision Making PA Attestation Dr. Storey Is my supervising Physician whom patient management has been discussed with. ER Course This patient left prior to evaluation by medical provider. Last Vital Signs Date Time Temp Pulse Resp B/P (MAP) Pulse Ox O2 Delivery O2 Flow Rate FiO2 05/02/19 12:46 97.9 81 19 107/59 95 Room Air Disposition: LEFT W/OUT BEING SEEN Condition: Unknown Yareli Cullen May 02, 2019 15:07
== END | disposition left against medical advice (07) ==
LOC: EMR 13:30
DX: Z53.21 Procedure and treatment not carried out due to patient leaving prior to being seen by health care provider (principal); Z88.6 Allergy status to analgesic agent

== ENCOUNTER 2019-05-06 02:02 | Emergency (ER) | payer MEDICAID ==
[~2019-05-06] VITALS: Ht 170.2 cm; Wt 118.4 kg
[~2019-05-06 02:02] MED LIST changes: -IBU800 MG PO
[2019-05-06 02:21] VITALS: BP 108/72
--- NOTE | 2019-05-06 03:14 | Emergency Room Report ---
History of Present Illness General Chief Complaint: Dizziness Source: Patient Present Illness HPI 43-year-old female presents ED for evaluation of cough, dizziness. Symptoms started today. Cough is productive with yellowish phlegm. Also notes sore throat. Denies fevers or chills. Denies recent travel. Also complaining of pain to her left breast has been there for nearly 1 month. Dull, 7 out of 10, nonradiating. No other aggravating relieving factors. Denies any other associated symptoms COVID-19 risk:Travel to affect: No Has patient experienced arauz: No Allergies: Coded Allergies: MORPHINE (Verified Allergy, Mild, 11/15/13) CONSTIPATION Patient History Past Medical History: other - sickle cell Past Surgical History: none Pertinent Family History: none Social History: Denies: smoking, alcohol use, drug use Now: No Immunizations: UTD Reviewed Nursing Documentation: PMH: Agreed; PSxH: Agreed Review of Systems All Other Systems: negative except mentioned in HPI Physical Exam Vital Signs Date Time Temp Pulse Resp B/P (MAP) Pulse Ox O2 Delivery O2 Flow Rate FiO2 05/06/19 02:08 98.1 72 20 108/72 (84) 96 Room Air Sp02 EP Interpretation: reviewed, normal General Appearance: no apparent distress, alert, GCS 15, non-toxic Head: normocephalic, atraumatic Eyes: bilateral eye normal inspection, bilateral eye PERRL ENT: hearing grossly normal, normal pharynx, no angioedema, normal voice Neck: full range of motion, supple/symm/no masses Respiratory: chest non-tender, lungs clear, normal breath sounds, speaking full sentences Cardiovascular #1: regular rate, rhythm, no edema Cardiovascular #2: 2+ carotid (R), 2+ carotid (L), 2+ radial (R), 2+ radial (L) , 2+ dorsalis pedis (R), 2+ dorsalis pedis (L) Gastrointestinal: normal bowel sounds, non tender, soft, non-distended, no guarding, no rebound Rectal: deferred Genitourinary: normal inspection, no CVA tenderness Musculoskeletal: back normal, normal range of motion, gait/station normal, non- tender Neurologic: alert, motor strength/tone normal, oriented x3, sensory intact, responsive, speech normal Psychiatric: judgement/insight normal, memory normal, mood/affect normal, no suicidal/homicidal ideation Reflexes: 3+ bicep (R), 3+ bicep (L), 3+ tricep (R), 3+ tricep (L), 3+ knee (R) , 3+ knee (L) Skin: other - 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 no erythema/induration Lymphatic: no adenopathy Medical Decision Making Diagnostic Impression: Primary Impression: Breast pain Additional Impression: Upper respiratory infection Qualified Codes: J06.9 - Acute upper respiratory infection, unspecified ER Course Hospital Course 43 yo F presents with cough, dizziness, L breast pain Differential diagnoses include: URI, bronchitis, asthma/COPD, pneumonia Clinical course Patient placed on stretcher. After initial history, physical exam reveals a female in no acute distress. Bilateral TM unremarkable. No pharyngeal erythema. No tonsillar exudates. No lymphadenopathy. lungs clear. 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 There was a nodularity noted to the left breast. No induration or erythema. No fluctuance or discharge. I ordered labs, IV fluids, EKG, chest x-ray. Labs reviewed- no leukocytosis, hemoglobin/hematocrit stable, electrolytes okay , flu swab negative EKG - NSR no acute ischemic changes interpreted by me Chest x-ray shows no infiltrate I discussed findings with patient. Afebrile. Influenza negative. Negative chest x-ray findings. Likely viral. Course is self-limited. Patient will require follow-up with women's health for possible breast ultrasound versus mammogram. States there is a history of cancer in the family. Diagnosis - breast pain ,URI Stable and discharged home. Instructed to followup with PMD. Return to ED if symptoms recur or worsen Labs Test 05/06/19 02:34 White Blood Count 4.8 K/UL (4.8-10.8) Red Blood Count 4.82 M/UL (4.20-5.40) Hemoglobin 13.8 G/DL (12.0-16.0) Hematocrit 39.4 % (37.0-47.0) Mean Corpuscular Volume 82 FL (80-99) Mean Corpuscular Hemoglobin 28.7 PG (27.0-31.0) Mean Corpuscular Hemoglobin Concent 35.1 G/DL (32.0-36.0) Red Cell Distribution Width 13.0 % (11.6-14.8) Platelet Count 226 K/UL (150-450) Mean Platelet Volume 5.8 FL (6.5-10.1) Neutrophils (%) (Auto) 45.7 % (45.0-75.0) Lymphocytes (%) (Auto) 33.5 % (20.0-45.0) Monocytes (%) (Auto) 15.6 % (1.0-10.0) Eosinophils (%) (Auto) 4.3 % (0.0-3.0) Basophils (%) (Auto) 1.0 % (0.0-2.0) Urine Color Pale yellow Urine Appearance Slightly cloudy Urine pH 5 (4.5-8.0) Urine Specific [place] 1.025 (1.005-1.035) Urine Protein Negative (NEGATIVE) Urine Glucose (UA) Negative (NEGATIVE) Urine Ketones Negative (NEGATIVE) Urine Blood 5+ (NEGATIVE) Urine Nitrite Negative (NEGATIVE) Urine Bilirubin Negative (NEGATIVE) Urine Urobilinogen Normal MG/DL (0.0-1.0) Urine Leukocyte Esterase Negative (NEGATIVE) Urine RBC 60-80 /HPF (0 - 2) Urine WBC 0-2 /HPF (0 - 2) Urine Squamous Epithelial Cells Moderate /LPF (NONE/OCC) Urine Bacteria Few /HPF (NONE) Sodium Level 142 MMOL/L (136-145) Potassium Level 3.9 MMOL/L (3.5-5.1) Chloride Level 106 MMOL/L (98-107) Carbon Dioxide Level 31 MMOL/L (21-32) Anion Gap 5 mmol/L (5-15) Blood Urea Nitrogen 13 mg/dL (7-18) Creatinine 0.9 MG/DL (0.55-1.30) Estimat Glomerular Filtration Rate > 60 mL/min (>60) Glucose Level 100 MG/DL (74-106) Calcium Level 9.0 MG/DL (8.5-10.1) Total Bilirubin 0.2 MG/DL (0.2-1.0) Aspartate Amino Transf (AST/SGOT) 19 U/L (15-37) Alanine Aminotransferase (ALT/SGPT) 24 U/L (12-78) Alkaline Phosphatase 80 U/L (46-116) Total Protein 7.2 G/DL (6.4-8.2) Albumin 3.4 G/DL (3.4-5.0) Globulin 3.8 g/dL Albumin/Globulin Ratio 0.9 (1.0-2.7) EKG Diagnostic Results Rate: normal Rhythm: NSR ST Segments: no acute changes ASA given to the pt in ED: No Rhythm Strip Diag. Results EP Interpretation: yes Rhythm: NSR, no PVC's, no ectopy Chest X-Ray Diagnostic Results Chest X-Ray Diagnostic Results : Chest X-Ray Ordered: Yes # of Views/Limited/Complete: 1 View Indication: Other - cough EP Interpretation: Yes Interpretation: no consolidation, no effusion, no pneumothorax, no acute cardiopulmonary disease Impression: No acute disease Electronically Signed by: Electronically signed by Min Patel MD Last Vital Signs Date Time Temp Pulse Resp B/P (MAP) Pulse Ox O2 Delivery O2 Flow Rate FiO2 05/06/19 02:21 98.1 72 20 108/72 96 Room Air Status: improved Disposition: HOME, SELF-CARE Condition: Stable Min Patel MD May 06, 2019 03:14
[2019-05-06 03:19] LABS: BILIRUBIN, URINE NEGATIVE (NEGATIVE); COLOR,URINE PALE YELLOW; GLUCOSE, URINE (UA) NEGATIVE (NEGATIVE); KETONES,URINE NEGATIVE (NEGATIVE); LEUKOCYTE ESTERASE ,URINE NEGATIVE (NEGATIVE); NITRITE,URINE NEGATIVE (NEGATIVE); PH,URINE 5 (4.5-8.0); PROTEIN,URINE NEGATIVE (NEGATIVE); UROBILINOGEN,URINE NORMAL MG/DL (0.0-1.0)
--- NOTE | 2019-05-06 03:25 | Diagnostic Imaging Report ---
EXAM: XR Chest, 1 View CLINICAL HISTORY: COUGH TECHNIQUE: Frontal view of the chest. COMPARISON: No relevant prior studies available. FINDINGS: Lungs: Unremarkable. No consolidation. Pleural space: Unremarkable. No pneumothorax. Heart: Unremarkable. No cardiomegaly. Mediastinum: Unremarkable. Bones/joints: Unremarkable. IMPRESSION: No acute findings
[2019-05-06 03:28] LABS: EOSINOPHILS % (AUTO) 4.3 % (0.0-3.0); HEMATOCRIT 39.4 % (37.0-47.0); HEMOGLOBIN 13.8 G/DL (12.0-16.0); LYMPHOCYTES % (AUTO) 33.5 % (20.0-45.0); MEAN CORPUSCULAR VOLUME 82 FL (80-99); MONOCYTES % (AUTO) 15.6 % (1.0-10.0); NEUTROPHILS % (AUTO) 45.7 % (45.0-75.0); PLATELET COUNT 226 K/UL (150-450); RED BLOOD COUNT 4.82 M/UL (4.20-5.40); WHITE BLOOD COUNT 4.8 K/UL (4.8-10.8)
[2019-05-06 03:34] LABS: ANION GAP 5 mmol/L (5-15); BLOOD UREA NITROGEN 13 mg/dL (7-18); CARBON DIOXIDE 31 MMOL/L (21-32); CHLORIDE 106 MMOL/L (98-107); CREATININE 0.9 MG/DL (0.55-1.30); POTASSIUM 3.9 MMOL/L (3.5-5.1); SODIUM 142 MMOL/L (136-145)
[2019-05-06 03:39] LABS: ALANINE AMINOTRANSFERASE 24 U/L (12-78); ALBUMIN 3.4 G/DL (3.4-5.0); ALBUMIN/GLOBULIN RATIO 0.9 (1.0-2.7); ALKALINE PHOSPHATASE 80 U/L (46-116); APPEARANCE,URINE SLIGHTLY CLOUDY; ASPARTATE AMINO TRANSFERASE 19 U/L (15-37); BILIRUBIN,TOTAL 0.2 MG/DL (0.2-1.0)
[2019-05-06 03:42] VITALS: BP 108/72
== END 2019-05-06 03:42 | disposition home or self-care (01) ==
LOC: EMR 03:30
DX: J06.9 Acute upper respiratory infection, unspecified (principal); N64.4 Mastodynia; Z88.6 Allergy status to analgesic agent
CPT/HCPCS: 36415; 71045; 80053; 81003; 85025; 86710; 93005; 96360; Z7502; 99284

== ENCOUNTER 2019-05-08 14:42 | Emergency (ER) | payer MEDICAID ==
[~2019-05-08] VITALS: Ht 170.2 cm; Wt 118.4 kg
[2019-05-08 14:50] VITALS: BP 121/75
--- NOTE | 2019-05-08 15:53 | Diagnostic Imaging Report ---
Indication: Chest Technique: One view of the chest Comparison: none Findings: Lungs and pleural spaces are clear. Heart size is upper limits normal. No significant change Impression: No acute process
[2019-05-08 17:20] VITALS: BP 124/78
[2019-05-08] MEDS ORDERED: Ketorolac 30mg Inj IV ONE (17:30)
--- NOTE | 2019-05-08 17:34 | Emergency Room Report ---
History of Present Illness General Chief Complaint: Upper Respiratory Illness Source: Patient Present Illness HPI 43-year-old female who reports having history of sickle cell anemia here complaining of worsening sickle cell pain as well as 2 days of cough and congestion. Denies any fever and chills or recent travel. Patient was seen at [facility] 2 days ago for similar symptoms. Complete blood work was done on her and no signs of sickle cell noted. Patient keeps asking for Dilaudid. Reports that 2 days ago when she was here she did not receive her with her Dilaudid. Reports that has an upcoming visit with [place] in 3 weeks. Covid patient has patient has been having multiple hospital visits in the past week as well as complaining of cough and congestion with low-grade fever. Denies chest pain shortness of breath at this time. Otherwise stable and vital signs are within normal limits. Denies . COVID-19 risk:Travel to affect: No Has patient experienced arauz: No Allergies: Coded Allergies: MORPHINE (Verified Allergy, Mild, 11/15/13) CONSTIPATION Patient History Past Medical History: see triage record Past Surgical History: none Pertinent Family History: none Last Menstrual Period: 04/05/2019 Now: No Immunizations: UTD Reviewed Nursing Documentation: PMH: Agreed; PSxH: Agreed Review of Systems All Other Systems: negative except mentioned in HPI Physical Exam Vital Signs Date Time Temp Pulse Resp B/P (MAP) Pulse Ox O2 Delivery O2 Flow Rate FiO2 05/08/19 14:30 97.9 68 18 121/75 (90) 96 Room Air Sp02 EP Interpretation: reviewed, normal General Appearance: no apparent distress, alert, GCS 15, non-toxic Head: normocephalic, atraumatic Eyes: bilateral eye normal inspection, bilateral eye PERRL ENT: hearing grossly normal, normal pharynx, no angioedema, normal voice Neck: full range of motion, supple/symm/no masses Respiratory: chest non-tender, lungs clear, normal breath sounds, no rhonchi, no retraction, no wheezing, speaking full sentences Cardiovascular #1: no murmur Gastrointestinal: non tender, soft Rectal: deferred Musculoskeletal: back normal, digits/nails normal, no calf tenderness Neurologic: alert, motor strength/tone normal, oriented x3, sensory intact, responsive, speech normal Psychiatric: judgement/insight normal, memory normal, mood/affect normal, no suicidal/homicidal ideation Skin: no rash Lymphatic: no adenopathy Medical Decision Making PA Attestation All my diagnosis and treatment plans were reviewed ad discussed with my supervising physician Dr. Nesbitt Diagnostic Impression: Primary Impression: Upper respiratory infection Additional Impression: Sickle-cell disease with pain ER Course 43-year-old female who reports having history of sickle cell anemia here complaining of worsening sickle cell pain as well as 2 days of cough and congestion. Denies any fever and chills or recent travel. Patient was seen at [facility] 2 days ago for similar symptoms. Complete blood work was done on her and no signs of sickle cell noted. Patient keeps asking for Dilaudid. Reports that 2 days ago when she was here she did not receive her with her Dilaudid. Reports that has an upcoming visit with [place] in 3 weeks. Covid patient has patient has been having multiple hospital visits in the past week as well as complaining of cough and congestion with low-grade fever. Denies chest pain shortness of breath at this time. Otherwise stable and vital signs are within normal limits. Denies . Ddx considered but are not limited to: Coronavirus, strep pharyngitis, URI, tonsillitis, peritonsillar abscess, influneza Vital signs: are WNL, pt. is afebrile H&PE are most consistent with: Upper respiratory infection, sickle cell disease with pain ORDERS: No lab testing at this time patient had all testing done 2 days ago, influenza swab, chest x-ray, Covid 19 testing, Motrin ED INTERVENTIONS: toradol IM DISCHARGE: At this time pt. is stable for d/c to home. Will provide printed patient care instructions, and any necessary prescriptions. Care plan and follow up instructions have been discussed with the patient prior to discharge. He need to be self-limiting for 14 days, take medication as directed, follow- up primary care provider, you also need to be seen by [place], if worsening symptoms return to the emergency room Chest X-Ray Diagnostic Results Chest X-Ray Diagnostic Results : Chest X-Ray Ordered: Yes # of Views/Limited/Complete: 1 View Indication: Other - Cough EP Interpretation: Yes PA Xray: Interpretation reviewed, by supervising MD, and agrees with findings. Interpretation: no consolidation, no effusion, no pneumothorax Impression: No acute disease Electronically Signed by: Frederic Ruiz PA-C Last Vital Signs Date Time Temp Pulse Resp B/P (MAP) Pulse Ox O2 Delivery O2 Flow Rate FiO2 05/08/19 17:20 97.9 85 20 124/78 99 Room Air Disposition: HOME, SELF-CARE Condition: Stable Scripts Ibuprofen (Ibu) 800 Mg Tablet 800 MG PO TID, #30 TAB Prov: Frederic Shore 05/08/19 Patient Instructions: Chronic Pain, Upper Respiratory Infection, Adult Additional Instructions: Take medication as directed, contact your [place], if worsening symptoms at emergency room you are highly advised to self parenting for the next 14 days. Frederic Shore May 08, 2019 17:34
[2019-05-08] MEDS ORDERED: IBU800 MG PO (17:37)
[2019-05-08 17:55] VITALS: BP 122/74
== END 2019-05-08 17:55 | disposition home or self-care (01) ==
LOC: EMR 15:00
DX: J06.9 Acute upper respiratory infection, unspecified (principal); D57.1 Sickle-cell disease without crisis; B97.29 Other coronavirus as the cause of diseases classified elsewhere; Z88.6 Allergy status to analgesic agent
CPT/HCPCS: 71045; 86710; 87635; 93005; 96374; J1885; Z7502; 99284

== ENCOUNTER → 2019-07-16 | Emergency (ER) | payer MEDICAID ==
[~2019-07-16] VITALS: Ht 170.2 cm; Wt 115.7 kg
[~2019-07-16] MED LIST changes: +IBU800 MG PO; +IBUPROFEN600 M1 ORAL
[2019-07-16 14:52] VITALS: BP 128/64
--- NOTE | 2019-07-16 14:57 | NUR ---
ED Nurse Note: Pt from home came in due to left shoulder pain that radiates to her right lower back x weeks. Also c/o coughing with SOB for over a week. AAO x4 mabulatory with non labored breathing upon arrival.
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
--- NOTE | 2019-07-16 16:21 | Diagnostic Imaging Report ---
EXAM: XR Left Shoulder Complete, 2 or More Views CLINICAL HISTORY: PAIN TECHNIQUE: Two or more views of the left shoulder. COMPARISON: No relevant prior studies available. FINDINGS: Bones/joints: Unremarkable. Normal alignment is seen at the acromioclavicular and glenohumeral joints. No visible displaced fracture or dislocation. No osseous erosions. Coracoclavicular and subacromial spaces appear within normal limits. The clavicle and scapula appear intact. Soft tissues: Unremarkable. IMPRESSION: Unremarkable left shoulder x-rays.
--- NOTE | 2019-07-16 16:21 | Diagnostic Imaging Report ---
EXAM: XR Chest, 1 View CLINICAL HISTORY: PAIN TECHNIQUE: Frontal view of the chest. COMPARISON: Chest x-ray dated 05/08/19 FINDINGS: Lungs: Unremarkable. The lungs appear clear. No focal consolidation. Pleural space: Unremarkable. The costophrenic angles are sharp. No visible pneumothorax. Heart: Unremarkable. No cardiomegaly. Mediastinum: Unremarkable. Bones/joints: Unremarkable. IMPRESSION: No acute findings.
== END | disposition home or self-care (01) ==
LOC: EDUNIT# 14:50 → EDBD 15:01 → EMR 15:40
DX: M25.512 Pain in left shoulder (principal); M62.838 Other muscle spasm; R05 Cough; M54.5 Low back pain; Z88.6 Allergy status to analgesic agent; R06.02 Shortness of breath; Z90.710 Acquired absence of both cervix and uterus; M19.90 Unspecified osteoarthritis, unspecified site
CPT/HCPCS: 71045; 73030; Z7502; 99284